=== PATIENT | male | born 1990 | race Caucasian/White ===

== ENCOUNTER 2024-05-07 10:41 | Emergency (ER) | payer OTHER, SELFPAY ==
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
[2024-05-07 10:42] VITALS: BP 132/80; PULSE 108; RESP 16; TEMP 36.8; O2SAT 100
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
[2024-05-07] MEDS: KETOROLAC (*BKC) 60 MG/2 ML VIAL IM (11:53)
[2024-05-07] MEDS: HYDROcodone/acetaminophen (*CRX) 5-325 MG TABLET 1 TAB PO (11:53)
[2024-05-07 12:11] VITALS: BP 127/82; PULSE 93; RESP 17; O2SAT 99
--- OUTSIDE RECORDS SUMMARY | 2024-05-07 12:11 | XMS_ITS | Clinical Summary ---
Author Organization [facility] Address [address] [place] [address] Phone Care Team Providers Care Story Writer Name Role Phone [facility], External Provider Primary Care Provider U navailable Allergies Active Allergy Reactions Criticality Noted Date Comments Cephalexin Hives High 07/15/2013 Venlafaxine Other (See Comments) High 07/15/2013 Rage Medications LORazepam (ATIVAN) 0.5 mg tablet Take 0.5 mg by mouth every 6 hours as needed for Anxiety. Active mirtazapine (REMERON) 45 mg tablet Take 45 mg by mouth daily before supper. Active Active Problems Problem Noted Date Diagnosed Date Routine general medical exam ination at a health care facility 07/18/2013 Depression 07/15/2013 Social History Tobacco Use Types Packs/Day Years Used Date Smoking Tobacco: Never Alcohol Use Standard Drinks/Week Comments Yes 0 (1 standard drink = 0.6 oz pur e alcohol) rarely Sex and Gender Information Value Date Recorded Sex Assigned at Not on file Legal Sex Male 11:50 AM CDT Gender Identity Not on file Sexual Orientation Not on file Last Filed Vital Signs Vital Sign Reading Time Taken Comments Blood Pressure 128/58 07/16/2013 6:26 AM CDT Pulse 76 07/16/2013 6:26 AM CDT Temperature 36.7 C (98.1 F) 07/16/2013 6:26 AM CDT Respiratory Rate 20 07/16/2013 6:26 AM CDT Oxygen Saturation 97% 07/16/2013 6:26 AM CDT Inhaled Oxygen Concentration - - Weight 91.2 kg (201 lb) 07/15/2013 6:30 PM CDT Height 185.4 cm (6' 1 ) 07/15/2013 6:30 PM CDT Body Mass Index 26.52 07/15/2013 6:30 PM CDT Plan of Treatment Health Maintenance Due Date Last Done Comments DTAP/TDAP/TD VACCINES (1 - Tdap) 07/31/2010 HEPATITIS B VACCINES (1 of 3 - 19+ 3-dose series) 07/31/2010 INFLUENZA VACCINE (#1) 2023 HPV VACCINES Aged Out No longer eligi ble based on patient's age to complete this topic PNEUMOCOCCAL VACCINE 0-49 YEARS Aged Out No longer eligible based on patient's age to complete this topic Advance Directives For more information, please contact: [phone] * Full Code (Latest Code Status on File) Date Activated Date Inactivated Comments 07/15/2013 6:35 PM 07/16/2013 1:16 PM Care Teams Story Writer Relationship Specialty Start Date End Date [facility], External Provider [address] [place] [address] PCP - General 07/15/13
[2024-05-07 12:13] VITALS: BP 127/82; PULSE 93; RESP 17; O2SAT 99
--- OUTSIDE RECORDS SUMMARY | 2024-05-07 13:09 | XMS_ITS | Clinical Summary ---
Author Organization [facility] Address [address] [place] [address] Phone Care Team Providers Care Patrol Driver Name Role Phone [facility], External Provider Primary Care Provider U navailable [...] Advance Directives For more information, please contact: [phone] * Full Code (Latest Code Status on File) Date Activated Date Inactivated Comments 07/15/2013 6:35 PM 07/16/2013 1:16 PM Care Teams Patrol Driver Relationship Specialty Start Date End Date [facility], External Provider [address] [place] [address] PCP - General 07/15/13
== END 2024-05-07 12:14 | disposition home or self-care (01) ==
PROVIDERS: Emergency Provider Physician Assistant; PCP Family Medicine
DX: S62.336A Displaced fracture of neck of fifth metacarpal bone, right hand, initial encounter for closed fracture (principal); W22.09XA Striking against other stationary object, initial encounter
CPT/HCPCS: 29125; 73130; 96372; 99283; 99284; A9270; J1885

== ENCOUNTER 2024-05-14 00:45 | Day surgery (SDC) | payer OTHER, SELFPAY ==
--- NOTE | 2024-05-09 14:25 | PC.NURSE ---
Report to the Outpatient Waiting Room, entrance under the green pavilion located off [facility], at time _130pm_ on date _[id number]_. Planned Procedure Time: _330pm_.? Time changes happen often and if your time is changed the preop area will call you the afternoon before. - You and your visitor will be asked to self-screen and do not enter if you have any COVID symptoms. Please call surgeon if you need to reschedule. - A mask is optional within the hospital at this time. May have clear liquids (water, carbonated beverages, clear teas, apple juice) until 730am with a maximum of 20 ounces. Nothing to drink after 730am. - No food from midnight until time of surgery and no smoking of any kind, or chewing tobacco (or any form of nicotine). No chewing gum, candy or mints. Take only the following medications with a SIP of water on the morning of surgery: ____Hydrocodone if needed for pain.____ DO NOT STOP ANY OF YOUR OTHER PRESCRIPTION MEDICATIONS PRIOR TO SURGERY EXCEPT THE FOLLOWING Hold all vitamins and supplements for 3 days per anesthesiologist. Medications to discontinue per physician Date to take last dose Please no make-up, nail greenlandic, hairspray, perfume, deodorant, or body powder the day of surgery.? No jewelry (including any body piercings) or valuables the day of surgery, leave them at home.? Please take a shower or bath the night before, or the morning of, surgery with an antibacterial soap.? Wear comfortable, loose fitting clothing.? - Jewelry must be removed prior to entering the operating room.? Rings and piercings that are not removed may be cut off. - The hospital will not accept responsibility for valuables.? - Please leave all valuables, including medications, at home the day of surgery. If you are going home after surgery, a licensed contract driver must drive you home.? - NO public transportation without another adult if you receive anesthesia. - We recommend that an adult stay with you for 24 hours following discharge. - We also recommend that you do not drive, make important decision, drink alcoholic beverages, or take any drugs that were not prescribed by your health care provider for at least 24 hours after your discharge time. Follow any additional instructions given to you from your surgeon. Telephone instructions given to __Evan__and asked if any additional questions and then verbalized understanding. Patient advised to call surgeon office or pre surgery nurse liaison [phone] if any additional questions.
[2024-05-09 14:36] VITALS: BMI 25.7
--- NOTE | ~2024-05-14 | XR_ITS ---
EXAMINATION: XR surgery orthopedic DATE: 05/14/2024 14:18 INDICATION: Fracture of right fifth metacarpal. TECHNIQUE: 3 intraoperative fluoroscopic views of right hand were obtained. I was not present. Fluoro scopy exposure time was 51 seconds. COMPARISON: Right hand radiographs 05/07/2024 FINDINGS: There is an oblique fracture of neck of fifth metacarpal in near-anatomic alignment with in ternal fixation with threaded headless screw. Joint spaces are normal. IMPRESSION: 1. Oblique fracture of neck of fifth metacarpal status post open reduction internal fixation. Reviewed, dictated and finalized at location B. IMPRESSION: 1. Oblique fracture of neck of fifth metacarpal status post open reduction inte rnal fixation.
--- OUTSIDE RECORDS SUMMARY | 2024-05-14 00:47 | XMS_ITS | Clinical Summary ---
Author Organization [facility] Address [address] [place] [address] Phone Care Team Providers Care Boring Mill Operator For Metal Name Role Phone [facility], External Provider Primary Care Provider U navailable [...] Advance Directives For more information, please contact: [phone] * Full Code (Latest Code Status on File) Date Activated Date Inactivated Comments 07/15/2013 6:35 PM 07/16/2013 1:16 PM Care Teams Boring Mill Operator For Metal Relationship Specialty Start Date End Date [facility], External Provider [address] [place] [address] PCP - General 07/15/13
--- NOTE | 2024-05-14 07:01 | WPDHPUPDATE1 ---
History and Physical Update Update Date/Time: 05/14/24 07:01 Patient seen and examined in pre-operative holding area. No interval change in medical history or symptoms. Patient recalls previous discussion of benefits and alternatives to procedure. Continues to desire to proceed with right fifth metacarpal fractureopen reduction and fixation. Reviewed procedure, post-op expectations and risks including but not limited to bleeding, infection, injury to tendon/nerve/vessel, decreased hand function, stiffness, RSD, no change or worsening of symptoms, malunion, nonunion. I discussed the possible use of assistants and their participation in the case. Patient stated understanding and signed the consent form wishing to proceed.
--- NOTE | 2024-05-14 07:03 | W.PM.PROC2 ---
Procedure Note - Detailed Date of Procedure 05/14/24 Pre-op Diagnosis right 5th metacarpal fracture Post-op Diagnosis Same Procedure Performed right fifth metacarpal orif Surgeon Chris Bonilla MD Seafood Service Team Member kamila reed pa-c Anesthesia MAC Description of Procedure INFORMED CONSENT: The patient was seen and examined and marked in the pre-op area.? The patient signed the consent form. PROCEDURE IN DETAIL:The patient taken back to OR on the stretcher in supine position. Time out performed with anesthesia, surgeon and staff agreeing on patient's name site and surgery to be performed SCDs were placed on the lower extremities and inflated. A tourniquet was placed on {right} upper extremity and antibiotics given IV After anesthesia administered sedation I injected {6}cc 1%lido with epi and 0.5% marcaine plain at the operative site The?{right upper extremity}?was prepped and draped in sterile fashion the??{right upper extremity} was? exsanguinated with Esmarch bandage and tourniquet inflated to 250mmHg The mini c-arm was draped and brought into the field for fx evaluation. it was confirmed reduction was achievable but fracture unstable. I proceeded with making a longitudinal incision over the fifth metacarpophalangeal joint through skin and dermis with a 15 blade scalpel. littler scissors were used to spread down to the extensor tendon. I made a longitudinal incision in the tendon splitting it and retracting it allowing access to joint capsule. I proceeded with placing the retrograde guidewire town the metacarpal while holding fx in reduction. Wire placement was verified on multiple views of fluoro and the metacarpal length measured. The wire was drilled into hamate and then I proceedd with drilling over the wire under fluoro down the metacarpal. Next I proceeded with placing an 3.1xss07au arthrex intrametacarpal commercial carpenter the metacarpal. Multiple views of fluoro noted good screw placement and maintenance of reduction with the screw buried into the metacarpal head. There was no impingent on digit range of motion and no scissoring. I irrigated with normal saline and closed skin with 4-0 monocryl and 4-0 nylon. A dressing of xeroform, 4x4, tung, and an ulnar gutter splint was applied for patient safety, security, and comfort and secured with an sully bandage after the tourniquet was let down noting the hand was warm and well perfused. The patient was then awaken from anesthesia and transferred to the recovery room in stable condition.? Complications - none EBL- 0cc Disposition - home in stable conditions kamila reed pa-c was essential for positioning, retraction, fluoro, instrumentation, closure and dressing placement [facility] Billing Surgery - Charge Forward: Surgery Billing ([id number] for kamila)
[2024-05-14] MEDS: LIDO 1%/EPINEPHRINE 1:100,000 20 ML VIAL 10 ML INFILTRATE (12:07)
[2024-05-14 13:00] VITALS: BP 134/84; PULSE 80; RESP 16; TEMP 36.9; O2SAT 100
[2024-05-14 13:13] VITALS: BMI 24.5
[2024-05-14] MEDS: LACTATED RINGERS 1,000 ML 30 ML IV CONT (13:30)
--- NOTE | 2024-05-14 13:31 | P.PNAN_ITS ---
Anes - Initial Pre Proc Eval Procedure: Operation Date: 05/14/24 15:30 Proposed Procedures p Open Reduction Internal Fixation Right Fifth Metacarpal - Chris Bonilla MD Date/Time: 05/14/24 13:31 Surgeon: Chris Bonilla MD Pre Op Diagnosis: right 5th metacarpal fracture Patient Data Age: 33 Gender: M Height: 1.88 m Weight: 86.5 kg Allergies Allergy/AdvReac Type Severity Reaction Status Date / Time Cephalosporins Allergy Unknown RASH Verified 05/14/24 13:11 Grass Allergy Unknown SINUS Uncoded 05/09/24 14:28 ISSUES Home Medications ?Medication ?Instructions ?Recorded ?Confirmed ?Type hydrocodone 5 mg-acetaminophen 325 1 tablet PO Q6H PRN pain #15 tabs 05/07/24 05/09/24 Rx mg tablet escitalopram oxalate 5 mg tablet 5 mg PO HS 05/09/24 05/14/24 History hydroxyzine HCl 25 mg tablet 25 mg PO HS 05/09/24 05/14/24 History Patient hx anesthesia problems: none Family hx anesthesia problems: none Results Review: All pre-operative results and documents have been reviewed as part of the pre- operative evaluation. [facility] Past Medical History Medical History (Updated 05/14/24 @ 13:31 by Michael Whitten MD) Anxiety Social History Social History Smoking status: Never smoker Substance use type: marijuana Other substance usage details: every week. Anes - Eval Final PreProcedure Day of Procedure 05/14/24 13:31 Patient weight: normal Heart: regular rate and rhythm Lungs: clear to auscultation Airway: Mallampati scale class II Neurological: alert and oriented Last oral intake: >/= 8 hours ASA classification: II Emergent: no Anesthetic plan: proceed Anesthesia type and monitoring: general LMA and standard monitoring Results Review: All pre-operative results and documents have been reviewed as part of the pre- operative evaluation. Informed Consent: The patient's anesthetic plan and its attendant risks and benefits were discussed with the patient/family/POA. Questions were solicited and answers provided to the satisfaction of the patient/family/POA.
[2024-05-14] MEDS: CLINDAMYCIN 900 MG/D5W 50 ML 900 MG/50 ML PIGGYBACK 50 MG IVPB (13:44)
[2024-05-14 14:24] VITALS: BP 101/57; PULSE 79; RESP 16; O2SAT 98
[2024-05-14 14:50] VITALS: BP 103/67; PULSE 77; RESP 16; O2SAT 98
[2024-05-14 15:10] VITALS: BP 135/92; PULSE 60; RESP 16
== END 2024-05-14 15:17 | disposition home or self-care (01) ==
PROVIDERS: Visit Provider Plastic Surgery
PROC: (CPT 26615; principal; 2024-05-14 15:30)
DX: S62.336A Displaced fracture of neck of fifth metacarpal bone, right hand, initial encounter for closed fracture (principal); F41.9 Anxiety disorder, unspecified; F12.90 Cannabis use, unspecified, uncomplicated; W22.09XA Striking against other stationary object, initial encounter; Z79.891 Long term (current) use of opiate analgesic
CPT/HCPCS: 26615; 99199; J2003; J2004; J2250; J2704; J3010; J7120

== ENCOUNTER 2024-05-27 08:58 | Outpatient (CLI) | payer OTHER, SELFPAY ==
--- NOTE | ~2024-05-27 | XR_ITS ---
EXAMINATION: XR hand RT min 3V DATE: 05/27/2024 09:19 INDICATION: Displaced fracture of neck of fifth metacarpal. TECHNIQUE: 3 views of right hand were obtained. COMPARISON: Right hand radiographs 05/07/2024 FINDINGS: There is an oblique fracture of neck of fifth metacarpal in near-anatomic alignment with in ternal fixation with an intramedullary headless screw. Joint spaces are normal. Cast material is note d. IMPRESSION: 1. Oblique fracture of neck of fifth metacarpal in near-anatomic alignment status post open reduction internal fixation. Reviewed, dictated and finalized at location A. IMPRESSION: 1. Oblique fracture of neck of fifth metacarpal in near-anatomic alignment stat us post open reduction internal fixation.
--- OUTSIDE RECORDS SUMMARY | 2024-05-27 09:48 | XMS_ITS | Clinical Summary ---
Author Organization [facility] Address [address] [place] [address] Phone Care Team Providers Care Tail Board Man Name Role Phone [facility], External Provider Primary Care Provider U [...] Advance Directives For more information, please contact: [phone] * Full Code (Latest Code Status on File) Date Activated Date Inactivated Comments 07/15/2013 6:35 PM 07/16/2013 1:16 PM Care Teams Tail Board Man Relationship Specialty Start Date End Date [facility], External Provider [address] [place] [address] PCP - General 07/15/13
== END 2024-05-27 08:59 | disposition home or self-care (01) ==
PROVIDERS: Visit Provider Physician Assistant Surgical
DX: S62.336D Displaced fracture of neck of fifth metacarpal bone, right hand, subsequent encounter for fracture with routine healing (principal); X58.XXXD Exposure to other specified factors, subsequent encounter
CPT/HCPCS: 73130

== ENCOUNTER 2024-06-10 09:29 | Outpatient (CLI) | payer OTHER, SELFPAY ==
--- NOTE | ~2024-06-10 | XR_ITS ---
Right Hand Technique: PA, oblique, and lateral views were obtained. Clinical History: Fifth metacarpal fracture COMPARISON: 05/27/2024 Findings: Status post ORIF of fifth metacarpal fracture. Stable osseous and orthopedic hardware align ment. Continued fracture healing present. Remaining osseous structures and joint spaces are intact. S oft tissues are unremarkable. Impression: Continued interval healing of fifth metacarpal fracture, status post prior ORIF. Reviewed, dictated and finalized at location M. Impression: Continued interval healing of fifth metacarpal fracture, status post prior ORIF .
--- OUTSIDE RECORDS SUMMARY | 2024-06-10 10:21 | XMS_ITS | Clinical Summary ---
Author Organization [facility] Address [address] [place] [address] Phone Care Team Providers Care Radio Installer Name Role Phone [facility], External Provider Primary Care Provider [...] Advance Directives For more information, please contact: [phone] * Full Code (Latest Code Status on File) Date Activated Date Inactivated Comments 07/15/2013 6:35 PM 07/16/2013 1:16 PM Care Teams Radio Installer Relationship Specialty Start Date End Date [facility], External Provider [address] [place] [address] PCP - General 07/15/13
== END 2024-06-10 09:30 | disposition home or self-care (01) ==
PROVIDERS: PCP Physician Assistant Surgical; Visit Provider Physician Assistant Surgical
DX: S62.336D Displaced fracture of neck of fifth metacarpal bone, right hand, subsequent encounter for fracture with routine healing (principal); X58.XXXD Exposure to other specified factors, subsequent encounter
CPT/HCPCS: 73130